=== PATIENT | male | born 1980 | race African-American/Black ===

== ENCOUNTER 2024-01-23 23:02 | Emergency (ER) | payer MEDICARE ==
[~2024-01-23] VITALS: Ht 180.3 cm; Wt 100.9 kg
[2024-01-23 23:11] VITALS: BP 144/97; PULSE 97; RESP 16; TEMP 98.4; O2SAT 97
[2024-01-24] MEDS: MethylPREDNISolone SOD SUCC 125 MG/2 ML VIAL IM ONE (01:12)
== END 2024-01-24 01:49 | disposition home or self-care (01) ==
LOC: EMS 23:09
DX: S93.401A Sprain of unspecified ligament of right ankle, initial encounter (principal); M21.371 Foot drop, right foot; F17.210 Nicotine dependence, cigarettes, uncomplicated; X50.1XXA Overexertion from prolonged static or awkward postures, initial encounter; Y93.89 Activity, other specified; Y92.89 Other specified places as the place of occurrence of the external cause; Y99.8 Other external cause status
CPT/HCPCS: 99283; 73610; 96372; J2919

== ENCOUNTER 2024-03-08 14:16 | Emergency (ER) | payer MEDICARE ==
[~2024-03-08] VITALS: Ht 177.8 cm; Wt 81.8 kg
[2024-03-08 14:20] VITALS: BP 129/78; PULSE 108; RESP 18; TEMP 97.8; O2SAT 99
[2024-03-08] MEDS ORDERED: IBUP-1554 PO (16:12)
[2024-03-08] MEDS ORDERED: METH4TAB3 PO (16:12)
[2024-03-08] MEDS: MethylPREDNISolone SOD SUCC 125 MG/2 ML VIAL IM ONE (16:22)
[2024-03-08] MEDS: KETOROLAC TROMETHAMINE 60 MG/2 ML VIAL IM ONE (16:22)
== END 2024-03-08 16:35 | disposition home or self-care (01) ==
LOC: EMS 14:16
DX: S39.012A Strain of muscle, fascia and tendon of lower back, initial encounter (principal); M21.379 Foot drop, unspecified foot; F17.210 Nicotine dependence, cigarettes, uncomplicated; X58.XXXA Exposure to other specified factors, initial encounter; Y93.89 Activity, other specified; Y92.89 Other specified places as the place of occurrence of the external cause; Y99.8 Other external cause status
CPT/HCPCS: 99283; 96372; J1885; J2919